=== PATIENT | female | born 1995 | race African-American/Black ===

== ENCOUNTER 2022-05-22 09:14 | Day surgery (SDC) | payer OTHER, SELFPAY ==
[2022-05-15 19:54] VITALS: BMI 28.1
--- NOTE | 2022-05-21 10:32 | HO.ANESPROP2 ---
Documented by User: Janae Aviles NP 05/21/22 10:46 HPI - Anesthesia Eval Consult details Narrative: 26yo F for Left Eye Muscle Medial and Lateral Rectus Recession/Resection Cleared by PCP/[facility] (post- 03/2022) [facility] Past Medical History Medical History Asthma Depression Thalassemia trait, alpha Surgical History Surgical History (Updated 05/15/22 @ 19:36 by Felicia Zuñiga RN) No pertinent past surgical history Social History Social History Patient Tobacco Use Status: Never used Tobacco Use of substances other than those prescribed or required for medical reasons: No Are you DNR?: No Advance Directives: No Advance Directives Information Provided: Yes Advance Directives on File: No Recently lost weight without trying: No Nutrition Risks: No Nutritional Risk Meds Allergies Allergy/AdvReac Type Severity Reaction Status Date / Time No Known Allergies Allergy Verified 05/15/22 19:53 Home Medications Medication Instructions Recorded Confirmed Last Taken Type vit no.95-ferrous 1 tab PO DAILY 05/16/22 05/16/22 Unknown History fumarate 28 mg-folic acid 800 mcg tablet () Exam Exam Date and Time: May 21, 2022 1032 Height,Weight and Vital Signs: Height 5 ft 1 in Weight 67.585 kg Assessment and Plan Assessment Anesthesia Assessment: Chart Reviewed Documented by User: Meron Calles MD 05/22/22 12:09 [facility] Past Medical History Medical History Asthma Depression Thalassemia trait, alpha Family History Family history of problems with anesthesia: No Surgical History Surgical History (Updated 05/15/22 @ 19:36 by Felicia Zuñiga RN) No pertinent past surgical history History of Problems with Anesthesia: No (Only epidural for child ) Social History Social History Patient Tobacco Use Status: Never used Tobacco Use of substances other than those prescribed or required for medical reasons: No Are you DNR?: No Advance Directives: No Advance Directives Information Provided: Yes Advance Directives on File: No Recently lost weight without trying: No Nutrition Risks: No Nutritional Risk Meds Allergies Allergy/AdvReac Type Severity Reaction Status Date / Time No Known Allergies Allergy Verified 05/15/22 19:53 Home Medications Medication Instructions Recorded Confirmed Last Taken Type vit no.95-ferrous 1 tab PO DAILY 05/16/22 05/16/22 Unknown History fumarate 28 mg-folic acid 800 mcg tablet () Exam Height,Weight and Vital Signs: Height 5 ft 1 in Weight 67.585 kg Vital Signs Temp Pulse Resp BP Pulse Ox O2 Del Method 05/22/22 10:20 97.5 F 79 17 106/70 98 Room Air Pertinent Lab Results Pertinent Lab Results: Lab Results 05/22/22 Range/Units 09:29 Urine Test NEGATIVE (NEGATIVE) Airway Mallampati Class: II TM Dist: >3cm Neck ROM: Full Loose/Missing/Broken Teeth: No Heart: RRR Lungs: CTAB Assessment and Plan Assessment Anesthesia Assessment: Anesthesia Plan Discussed Final Anesthetic Review Family History of Problems with Anesthesia: No History of Problems with Anesthesia: No (Only epidural for child ) NPO: Yes ASA Class: II Final Preanesthetic Review: No Changes in Pt Med Stat, Meds/Allgs Chart Reviewed, Consent Obtained/Reviewed and Anes Risks/Benef Reviewed Patient Risk: Low Procedure Risk: Low Assessment/Block/Sedation in SS: Assess/Block/Sedation-SS Anesthetic Plan Anesthetic Plan: GA Disposition: Standard PACU
[2022-05-22] VITALS (7 sets, daily range): BP systolic 106–123; BP diastolic 63–87; PULSE 79–94; RESP 14–17; TEMP 36.1–36.4; O2SAT 98–100; BMI 28.1
[2022-05-22 09:45] LABS: UPreg QC Valid YES; Urine Pregnancy NEGATIVE (NEGATIVE)
[2022-05-22] MEDS: Lactated Ringers 1,000 ML 100 ML IVCONT (10:51)
[2022-05-22] MEDS: Acetaminophen 325 MG TABLET 650 MG PO (12:18)
[2022-05-22] MEDS: Tetracaine HCl/PF 0.5% Oph Sol 4 ML DROPS 1 DROP EYE-BOTH (13:53)
[2022-05-22] MEDS: oxyCODONE HCl Immed Release 5 MG TABLET PO (14:25)
--- NOTE | 2022-05-22 14:48 | HO.OPHTHAL ---
Ophthalmology Operative Note Date of Service: 05/22/22 Narrative: Preoperative diagnosis exotropia. Procedures 1. Recession of left lateral rectus muscle 9 mm 2. Resection of the left medial rectus muscle [address] Curry anesthesia general complications none. The patient was brought to the operative room placed under general anesthesia. The patient's left eye was prepped and draped in the usual sterile ophthalmic fashion. A lid speculum was placed in the eye and then incisions made at bare sclera in the inferotemporal fornix. The lateral rectus muscle was hooked and secured with a double-armed Vicryl suture. The muscle was then designed disinserted from the globe and reattached to a position 9 mm behind the original insertion. Conjunctiva was closed with interrupted Vicryl sutures. An incision was then made down to bare sclera in the inferior nasal fornix. The medial rectus muscle was hooked and the overlying fascial attachments were dissected free. A Jordan muscle clamp was placed near the insertion and an 8 mm resection was marked off with cautery. The resection point was secured with a double-armed Vicryl suture. The distal muscle was resected and the resection point was drawn forward to the original insertion using the Vicryl suture. Conjunctiva was closed with interrupted Vicryl sutures. Patient was then awoken from general anesthesia and discharged to postop recovery in good condition.
== END 2022-05-22 15:25 | disposition home or self-care (01) ==
PROVIDERS: Nurse Practitioner; PCP Nurse Practitioner Family; Visit Provider Ophthalmology
PROC: (CPT 67312; principal; 2022-05-22 11:10)
DX: H50.112 Monocular exotropia, left eye (principal); H52.13 Myopia, bilateral; D50.9 Iron deficiency anemia, unspecified; D56.3 Thalassemia minor; F33.0 Major depressive disorder, recurrent, mild; E55.9 Vitamin D deficiency, unspecified; Z79.899 Other long term (current) drug therapy
CPT/HCPCS: 67312; 81025; J1100; J1885; J2250; J2405